=== PATIENT | male | born 1995 | race Two or more races ===

== ENCOUNTER 2016-10-18 19:30 | Emergency (ER) | payer BC ==
--- NOTE | 2016-10-18 20:04 | ER Document Report ---
ED Medical Screen (RME) - General Chief Complaint: Dog Bite Stated Complaint: DOG BITE Time Seen by Provider: 10/18/16 20:02 Mode of Arrival: Ambulatory Information source: Patient Notes: 21-year-old male bitten by a [place]-appearing dog at [place] this afternoon. He reports he was bitten once on his left hand and notes one abrasion over the left wrist and one puncture bernardino on the dorsum of his hand and 2 puncture padron in the thenar eminence of his thumb area reports last tetanus shot was fifth grade and has never had the rabies vaccination. Denies other injuries Physical exam Well-developed well-nourished male no respiratory distress Left hand examination as above. Radial median and ulnar nerve function to left hand is intact brisk upper refill all fingers with full range of motion and strength TRAVEL OUTSIDE OF THE [place] IN LAST 30 DAYS: No - Related Data Allergies/Adverse Reactions: No Known Allergies Allergy (Unverified 10/18/16 19:41) Past Medical History Renal/ Medical History: Denies: Hx Peritoneal Dialysis Physical Exam - Vital signs Vitals: Temp Pulse Resp BP Pulse Ox 98.2 F 61 20 143/78 H 100 10/18/16 19:36 10/18/16 19:36 10/18/16 19:36 10/18/16 19:36 10/18/16 19:36 Course - Vital Signs Vital signs: Temp Pulse Resp BP Pulse Ox 98.2 F 61 20 143/78 H 100 10/18/16 19:36 10/18/16 19:36 10/18/16 19:36 10/18/16 19:36 10/18/16 19:36
--- NOTE | 2016-10-18 20:27 | ER Document Report ---
ED Animal Bite - General Chief Complaint: Dog Bite Stated Complaint: DOG BITE Time Seen by Provider: 10/18/16 20:02 Mode of Arrival: Ambulatory Notes: 21 yo healthy male c/o dog bite to left hand. pt was walking in park, malian sin appearing dog with collar approached pt, when patient bent down and stretched out hand, dog bit him and ran away. TRAVEL OUTSIDE OF THE [place] IN LAST 30 DAYS: No - HPI Location of injury: LUE - hand Severity of injury: Bitten Onset: This afternoon Quality of pain: Achy Context of attack: "Unprovoked" attack Summary of what happened: see above Type of animal: Dog Appearance of animal: Appeared well - clean, well nurished Animal's immunizations: Unknown Animal captured or known: No Animal control notified: Yes Animal control form completed: Yes - Related Data Allergies/Adverse Reactions: No Known Allergies Allergy (Unverified 10/18/16 19:41) Past Medical History - General Information source: Patient - Social History Smoking Status: Current Some Day Smoker Frequency of alcohol use: None Drug Abuse: None Lives with: Family Family History: Reviewed & Not Pertinent Patient has suicidal ideation: No Patient has homicidal ideation: No - Medical History Medical History: Negative Renal/ Medical History: Denies: Hx Peritoneal Dialysis Review of Systems - Review of Systems Constitutional: No symptoms reported EENT: No symptoms reported Cardiovascular: No symptoms reported Respiratory: No symptoms reported Gastrointestinal: No symptoms reported Genitourinary: No symptoms reported Male Genitourinary: No symptoms reported Musculoskeletal: No symptoms reported Skin: No symptoms reported, See HPI Hematologic/Lymphatic: No symptoms reported Neurological/Psychological: No symptoms reported Physical Exam - Vital signs Vitals: Temp Pulse Resp BP Pulse Ox 98.2 F 61 20 143/78 H 100 10/18/16 19:36 10/18/16 19:36 10/18/16 19:36 10/18/16 19:36 10/18/16 19:36 Interpretation: Normal - General General appearance: Appears well, Alert - HEENT Head: Normocephalic, Atraumatic Eyes: Normal Pupils: PERRL - Respiratory Respiratory status: No respiratory distress Chest status: Nontender Breath sounds: Normal Chest palpation: Normal - Cardiovascular Rhythm: Regular Heart sounds: Normal auscultation Murmur: No - Abdominal Inspection: Normal Distension: No distension Bowel sounds: Normal Tenderness: Nontender Organomegaly: No organomegaly - Back Back: Normal, Nontender - Neurological Neuro grossly intact: Yes Cognition: Normal Orientation: AAOx4 Joseph Coma Scale Eye Opening: Spontaneous Joseph Coma Scale Verbal: Oriented Cades Coma Scale Motor: Obeys Commands Joseph Coma Scale Total: 15 Speech: Normal Motor strength normal: LUE, RUE, LLE, RLE Sensory: Normal - Psychological Associated symptoms: Normal affect, Normal mood - Skin Skin Temperature: Warm - puncture x 2 to dorsum and thenar aspect of left hand. + soft tissue swelling. no active bleeding. FROM. normal strength Skin Moisture: Dry Skin Color: Normal Irregularity with: Swelling, Tenderness. negative: Warmth Course - Re-evaluation Re-evalutation: 10/18/16 20:36 Discussed risk vs benefit of Rabies vaccine with patient. Pt declines rabies vaccine at this time. Pt reports dog did not appear sick in any way. - Vital Signs Vital signs: Temp Pulse Resp BP Pulse Ox 98.2 F 61 20 143/78 H 100 10/18/16 19:36 10/18/16 19:36 10/18/16 19:36 10/18/16 19:36 10/18/16 19:36 Discharge - Discharge Clinical Impression: Dog bite Qualifiers: Encounter type: initial encounter Qualified Code(s): W54.0XXA - Bitten by dog, initial encounter Condition: Stable Disposition: HOME, SELF-CARE Instructions: Animal Bites ([facility]), Antibiotic Therapy ([facility]), Oral Narcotic Medication ([facility]), Soap Cleansing ([facility]), Antibiotic Ointment Protection ([facility]) Additional Instructions: Your were seen today for a dog bite. The Rabies status of the dog is unknown. After discussion, you declined the Rabies vaccine at this time Please keep wound clean, take antibiotic as prescribed and follow up with your primary care in 24h for wound check Prescriptions: Amox Tr/Potassium Clavulanate [Augmentin 875-125 Tablet] 1 tab PO BID 10 Days Oxycodone HCl/Acetaminophen [Percocet 5-325 mg Tablet] 1 - 2 tab PO ASDIR PRN # 25 tablet PRN Reason:
[2016-10-18] MEDS ORDERED: OXYCODONE-ACETAMINOPHEN 5-325 MG TABLET PO ONE (20:40)
[2016-10-18] MEDS ORDERED: AMOXICILLIN TR/POT CLAVULANATE 500-125 MG TAB PO ONE (20:40)
[2016-10-18] MEDS ORDERED: DIPH/PERTUSS(ACELL)/TETANUS VAC/PF 0.5 ML SYR (>=10YO) IM ONE (20:44)
[2016-10-18 21:12] VITALS: BP 128/79
== END 2016-10-18 21:12 | disposition home or self-care (01) ==
LOC: ER 19:30
DX: S61.452A Open bite of left hand, initial encounter (principal); W54.0XXA Bitten by dog, initial encounter; Y93.01 Activity, walking, marching and hiking; Y92.830 Public park as the place of occurrence of the external cause; F17.200 Nicotine dependence, unspecified, uncomplicated
CPT/HCPCS: 99283